=== PATIENT | male | born 1990 | race Caucasian/White ===

== ENCOUNTER 2018-10-25 09:19 | Emergency (ER) | payer MEDICAID, OTHER ==
[~2018-10-25] VITALS: Ht 188 cm; Wt 62.0 kg
[~2018-10-25 09:19] MED LIST: IBUP-1985 PO; VALA500T PO
[2018-10-25 09:27] VITALS: BP 139/77
[2018-10-25] MEDS ORDERED: ibuprofen tablet 400 MG TABLET PO ONE (10:05)
--- NOTE | 2018-10-25 11:09 | NUR ---
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 ENRIQUE.
== END 2018-10-25 11:26 | disposition home or self-care (01) ==
LOC: ER 09:19
DX: S63.591A Other specified sprain of right wrist, initial encounter (principal); F17.200 Nicotine dependence, unspecified, uncomplicated; F12.10 Cannabis abuse, uncomplicated; Z79.899 Other long term (current) drug therapy; X50.1XXA Overexertion from prolonged static or awkward postures, initial encounter; Y93.89 Activity, other specified; Y92.89 Other specified places as the place of occurrence of the external cause; Y99.8 Other external cause status
CPT/HCPCS: 29125; 73110; 99283